=== PATIENT | female | born 1955 | race Caucasian/White ===

== ENCOUNTER 2018-07-15 13:08 | Emergency (ER) | payer MEDICARE, OTHER ==
[~2018-07-15] VITALS: Ht 165.1 cm; Wt 79.5 kg
[~2018-07-15 13:08] MED LIST: ACET500C4 PO; AMLO10TA55 PO; CLON.2 PO; DOCU250C28 PO; HYDR25TA PO; LABE200T5 PO; PANT40TA25 PO; VALS320T2 PO
[2018-07-15 13:33] VITALS: BP 132/89
[2018-07-15] MEDS ORDERED: TICA90TA PO ×2 (13:46→13:49)
[2018-07-15] MEDS ORDERED: LOSA25TA41 PO (13:49)
[2018-07-15] MEDS ORDERED: RANI150T7 PO (13:49)
[2018-07-15] MEDS ORDERED: HYDR25TA84 PO (13:49)
[2018-07-15] MEDS ORDERED: OMEP10 PO (13:49)
[2018-07-15] MEDS ORDERED: TraMADol HCL 50 MG TABLET PO ONE (14:30)
== END 2018-07-15 14:46 | disposition home or self-care (01) ==
LOC: EMS 13:09
DX: S80.01XA Contusion of right knee, initial encounter (principal); I11.9 Hypertensive heart disease without heart failure; I20.9 Angina pectoris, unspecified; F17.210 Nicotine dependence, cigarettes, uncomplicated; Z88.8 Allergy status to other drugs, medicaments and biological substances; X58.XXXA Exposure to other specified factors, initial encounter; Y93.89 Activity, other specified; Y92.89 Other specified places as the place of occurrence of the external cause; Y99.8 Other external cause status
CPT/HCPCS: 29505; 99406

== ENCOUNTER 2019-01-22 22:10 | Inpatient (IN) | payer MEDICARE, OTHER ==
[~2019-01-22] VITALS: Ht 162.6 cm; Wt 805.0 kg
[~2019-01-22 22:10] MED LIST changes: -ACET500C4 PO; -AMLO10TA55 PO; -DOCU250C28 PO; -HYDR25TA PO; +HYDR25TA84 PO; -LABE200T5 PO; +LOSA25TA41 PO; +OMEP10 PO; -PANT40TA25 PO; +RANI150T7 PO; +TICA90TA PO; -VALS320T2 PO
[2019-01-22] MEDS ORDERED: RANI150T7 PO (22:46)
[2019-01-22] MEDS ORDERED: RIVA2.5T PO (22:46)
[2019-01-22] MEDS ORDERED: ATOR40TA28 PO (22:46)
[2019-01-22] MEDS ORDERED: CLON.2 PO (22:46)
[2019-01-22] MEDS ORDERED: ASPI81 PO (22:46)
[2019-01-22] MEDS ORDERED: BACL10TA PO (22:46)
[2019-01-22] MEDS ORDERED: SERT50TA12 PO (22:46)
[2019-01-22] MEDS ORDERED: ISOS60TA4 PO (22:46)
[2019-01-22] MEDS ORDERED: HYDR-2924 PO (22:46)
[2019-01-22] MEDS ORDERED: LORA10TA7 PO (22:46)
[2019-01-22] MEDS ORDERED: CHOL200059 PO (22:46)
[2019-01-22] MEDS ORDERED: NEBI5 PO (22:46)
[2019-01-22] MEDS ORDERED: LOSA50TA64 PO (22:46)
[2019-01-22 23:25] LABS: BASOPHILS % (AUTO) 0.7 % (0.0-2.0); EOSINOPHILS % (AUTO) 3.3 % (1.0-6.0); HEMATOCRIT 41.5 % (36-46); LYMPHOCYTES # (AUTO) 1.5 K/uL (1.0-4.8); MEAN CORPUSCULAR HEMOGLOBIN 28.7 pg (26.0-34.0); MEAN CORPUSCULAR HGB CONC 31.2 G/dL (31.0-37.0); MEAN CORPUSCULAR VOLUME 92 fL (80-100); MONOCYTES # (AUTO) 0.5 K/uL (0.1-1.0); MONOCYTES % (AUTO) 6.4 % (2.0-9.0); NEUTROPHILS # (AUTO) 5.2 K/uL (1.8-7.7); NEUTROPHILS % (AUTO) 69.6 % (40.0-70.0); PLATELET COUNT (AUTO) 250 K/uL (150-450); RED BLOOD CELL COUNT(AUTO) 4.51 MIL/uL (4.00-5.20); RED CELL DISTRIBUTION WIDTH 14.2 % (11.5-14.5)
[2019-01-22 23:37] LABS: ANION GAP 9 mmol/L (8-16); CALCIUM, TOTAL 8.9 mg/dL (8.8-10.5); CARBON DIOXIDE 26 mmol/L (22-29); CHLORIDE 108 mmol/L (98-107); CREATININE 2.34 mg/dL (0.60-1.30); GLOMERULAR FILTR. RATE CALC 21 mL/min (>60); GLUCOSE,RANDOM 109 mg/dL (70-110); POTASSIUM 3.9 mmol/L (3.5-5.1); SODIUM SERUM 143 mmol/L (136-145); UREA NITROGEN, BLOOD 27 mg/dL (7-18)
[2019-01-22 23:46] LABS: ALANINE AMINOTRANSFERASE 18 U/L (12-78); ALBUMIN 3.4 g/dL (3.4-5.0); ALKALINE PHOSPHATASE 80 U/L (46-116); ASPARTATE AMINOTRANSFERASE 19 U/L (15-37); BILIRUBIN,TOTAL 0.3 mg/dL (0.1-1.0); TOTAL PROTEIN, SERUM 6.8 g/dL (6.4-8.2)
[2019-01-23] MEDS ORDERED: 0.9% SODIUM CHLORIDE 10 ML SYRINGE IVP PRN
[2019-01-23] MEDS ORDERED: ONDANSETRON HCL 4 MG/2 ML VIAL IVP PRN
[2019-01-23] MEDS ORDERED: ACETAMINOPHEN 325 MG TABLET PO PRN
[2019-01-23] MEDS ORDERED: SODIUM CHLORIDE 0.9% 1,000 ML IV ONE
[2019-01-23 01:51] VITALS: BP 125/72
[2019-01-23 04:46] VITALS: BP 123/68
[2019-01-23 08:10] VITALS: BP 129/83
[2019-01-23] MEDS: ATORVASTATIN CALCIUM 20 MG TABLET PO SCH (09:54)
[2019-01-23] MEDS: ASPIRIN 81 MG CHEWABLE TABLET PO SCH (09:54)
[2019-01-23 12:11] VITALS: BP 134/91
[2019-01-23 16:29] VITALS: BP 117/65
[2019-01-23 19:39] VITALS: BP 132/76
[2019-01-23] MEDS: HEPARIN SODIUM,PORCINE 5,000 UNITS/ML VIAL SQ SCH (22:01)
[2019-01-24] VITALS (9 sets, daily range): BP systolic 140–179; BP diastolic 74–107
[2019-01-24] MEDS ORDERED: HydrALAZINE HCL 50 MG TABLET PO SCH (01:30)
[2019-01-24] MEDS: LOSARTAN POTASSIUM 50 MG TABLET PO SCH ×2 (01:41→09:23)
[2019-01-24] MEDS ORDERED: HydrALAZINE HCL 20 MG/ML VIAL IVP PRN (03:45)
[2019-01-24] MEDS: ASPIRIN 81 MG CHEWABLE TABLET PO SCH (09:23)
[2019-01-24] MEDS: HEPARIN SODIUM,PORCINE 5,000 UNITS/ML VIAL SQ SCH ×2 (09:23→21:06)
[2019-01-24] MEDS: ATORVASTATIN CALCIUM 20 MG TABLET PO SCH (09:24)
[2019-01-24] MEDS ORDERED: CHOL100062 PO (11:23)
[2019-01-24] MEDS ORDERED: AmLODIPine BESYLATE 10 MG TABLET PO SCH (11:30)
[2019-01-24] MEDS: CARVEDILOL 6.25 MG TABLET PO SCH ×2 (12:02→21:06)
[2019-01-24] MEDS: AmLODIPine BESYLATE 10 MG TABLET PO SCH (12:02)
[2019-01-24 12:42] LABS: CALCIUM, TOTAL 8.8 mg/dL (8.8-10.5); CREATININE 1.24 mg/dL (0.60-1.30); POTASSIUM 4.2 mmol/L (3.5-5.1)
[2019-01-24] MEDS ORDERED: IOVERSOL 320 MG/ML 100 ML VIAL ONE (15:16)
[2019-01-24] MEDS ORDERED: SODIUM CHLORIDE 0.9% 100 ML ONE (15:16)
[2019-01-24 22:54] LABS: APPEARANCE,URINE CLEAR (CLEAR); BILIRUBIN,URINE NEGATIVE (NEGATIVE); GLUCOSE, URINE (UA) NEGATIVE (NEGATIVE); KETONES,URINE NEGATIVE (NEGATIVE); LEUKOCYTE ESTERASE ,URINE NEGATIVE (NEGATIVE); NITRATE,URINE NEGATIVE (NEGATIVE); OCCULT BLOOD,URINE NEGATIVE (NEGATIVE); PROTEIN,URINE NEGATIVE (NEGATIVE); UROBILINOGEN,URINE 0.2 mg/dL (<=1.0)
[2019-01-24 23:02] LABS: AMPHET/METH SCREEN,URINE POSITIVE (NEGATIVE); BARBITURATE SCREEN, URINE NEGATIVE (NEGATIVE); BENZODIAZEPINES SCREEN,URINE NEGATIVE (NEGATIVE); COCAINE SCREEN,URINE NEGATIVE (NEGATIVE); METHADONE SCREEN, URINE NEGATIVE (NEGATIVE); OPIATE SCREEN,URINE NEGATIVE (NEGATIVE)
[2019-01-24 23:05] LABS: BACTERIA,URINE Rare /HPF (None Seen); RBC,URINE 0-2 /HPF (0-2); SQUAMOUS EPITHELIAL CELL,UR Moderate /LPF (None Seen); WBC,URINE 0-2 /HPF (0-5)
[2019-01-24 23:20] LABS: CANNABINOID SCREEN,URINE NEGATIVE (NEGATIVE)
[2019-01-24 23:21] LABS: PHENCYCLIDINE SCREEN,URINE NEGATIVE (NEGATIVE)
[2019-01-25 00:03] VITALS: BP 151/78
[2019-01-25 04:48] VITALS: BP 158/84
[2019-01-25 07:20] VITALS: BP 145/94
[2019-01-25] MEDS: CARVEDILOL 6.25 MG TABLET PO SCH (09:13)
[2019-01-25] MEDS: ATORVASTATIN CALCIUM 20 MG TABLET PO SCH (09:13)
[2019-01-25] MEDS: ASPIRIN 81 MG CHEWABLE TABLET PO SCH (09:14)
[2019-01-25] MEDS: AmLODIPine BESYLATE 10 MG TABLET PO SCH (09:14)
[2019-01-25] MEDS: LOSARTAN POTASSIUM 50 MG TABLET PO SCH (09:14)
[2019-01-25] MEDS: HEPARIN SODIUM,PORCINE 5,000 UNITS/ML VIAL SQ SCH (09:14)
[2019-01-25 11:26] VITALS: BP 144/89
== END 2019-01-25 14:45 | disposition home or self-care (01) | DRG 69 ==
LOC: EMS 22:13 → 5S 01-23 00:16
PROVIDERS: ADMIT Internal Medicine; ATTEND Internal Medicine
DX: G45.9 Transient cerebral ischemic attack, unspecified (principal); Z68.45 Body mass index [BMI] 70 or greater, adult; N18.3 Chronic kidney disease, stage 3 (moderate); E66.9 Obesity, unspecified; E78.00 Pure hypercholesterolemia, unspecified; E78.5 Hyperlipidemia, unspecified; F17.210 Nicotine dependence, cigarettes, uncomplicated; I71.2 Thoracic aortic aneurysm, without rupture; E86.0 Dehydration; I12.9 Hypertensive chronic kidney disease with stage 1 through stage 4 chronic kidney disease, or unspecified chronic kidney disease; I71.4 Abdominal aortic aneurysm, without rupture; Z86.73 Personal history of transient ischemic attack (TIA), and cerebral infarction without residual deficits; Z95.5 Presence of coronary angioplasty implant and graft; Z79.82 Long term (current) use of aspirin
CPT/HCPCS: 70450; 70551; 71260; 72193; 74160; 93005; 97161; 97165; 97535; 99291; G0480; J0360; J1644; J7050